=== PATIENT | male | born 1975 | race Native Hawaiian/Other Pacific Islander ===

== ENCOUNTER 2016-11-13 14:46 | Inpatient (IN) | payer OTHER ==
[~2016-11-13] VITALS: Ht 188 cm; Wt 48.9 kg
--- NOTE | ~2016-11-13 | EKG ---
[address] [place] [address] ELECTROCARDIOGRAM REPORT Name: MELVIN SHEPPARD Room #: 434-P ADM IN M.R.#: [id number] Admission: 11/13/16 Attend Phys: Kindra Hoffman MD Discharge: Date of : 77 Report #: [id number] THIS REPORT FOR: //name// [facility] ED Test Date: 2016-11-13 Test Time: 19:48:30 Pat Name: MELVIN SHEPPARD Department: Room: 434 Gender: M Feed Weigher: SHABBIR : 1975 Requested By: Audra Szymanski Order Number: [id number] MD: Alan Sierra Measurements Intervals [place] Rate: 115 P: 67 CA: 158 QRS: 61 QRSD: 83 T: -30 QT: 253 QTc: 350 Interpretive Statements Sinus tachycardia Nonspecific ST and T wave abnormality No previous ECG available for comparison Electronically Signed On 11-14-2016 18:11:04 CDT by Alan Sierra [email or web address] <ELECTRONICALLY SIGNED> By: Alan Sierra MD, [facility] 11/14/16 1811 47 47 Alan Sierra MD, FACC /EPI
--- NOTE | ~2016-11-13 | S ---
[facility] [place] [address] SURGICAL PATH RPT PROCEDURE Name: MELVIN SHEPPARD Room #: 434-P ADM IN M.R.#: [id number] Admission: 11/13/16 Date of : 77 Discharge: Report #: [id number] Path Case #: [id number] PATHOLOGY REPORT COLLECTION DATE: 11/14/2016 RECEIVED DATE: 11/14/2016 SUBMITTING PHYS: Dr. Olu Todd OTHER PHYS: Dr. Brandon Hoffman ADDENDUM REPORT (Order Date: 11/17/2016 11:30) ADDENDUM COMMENT: This addendum is issued to document the special stain and the immunohistochemical stains performed. PAS-D fungal (C1): no definite fungal elements identified *CMV (C1): no definite viral inclusions identified *HSV-1 (C1): no viral inclusions identified The originally rendered diagnosis remains unchanged. (IUV:mgr; 11/17/2016) *This test was developed and its performance characteristics determined by [facility]. It has not been cleared or approved by the U.S. Food and Drug Administration. The FDA has determined that such clearance or approval is not necessary. This test is used for clinical purposes. It should not be regarded as investigational or for research. This laboratory is certified under the Clinical Laboratory Improvement Amendments of 1988 (CLIA) as qualified to perform high complexity clinical laboratory testing. Professional services performed by [facility] at [facility] [address], [place] [address] Technical services performed by [facility] at [address] [place] [address], [address] [place] [address]. ELECTRONICALLY SIGNED BY: Eileen Dykes M.D. DATE/TIME:11/17/2016 15:22 SPECIMEN(S) RECEIVED: A.Duodenal biopsy B.Gastric biopsy C.Esophagitis * * * * * * * * * * * * FINAL DIAGNOSIS: A. Small bowel mucosa, duodenum, endoscopic biopsy: [facility] [address] [place] [address] SURGICAL PATH RPT PROCEDURE Name: AKI SHEPPARDO Room #: 434-P [facility] IN M.R.#: [id number] Admission: 11/13/16 Date of : 77 Discharge: Report #: [id number] Path Case #: [id number] - No diagnostic abnormalities present. B. Gastric mucosa, gastritis, endoscopic biopsy: - Moderate reactive gastropathy with focal chronic active gastritis. - Negative for intestinal metaplasia or atrophy. - Negative for Helicobacter pylori. C. Squamous mucosa, esophagitis, endoscopic biopsy: - Fragments comprised of fibrinopurulent material consistent with ulceration. - Negative for viral inclusions on routine stains. - Squamous mucosa showing mild active esophagitis along with changes compatible with reflux. - Negative for intestinal metaplasia or dysplasia. COMMENT: Helicobacter pylori immunohistochemical stain performed on block B1-negative. A PAS-D fungal special stain, *CMV, and *HSV-1 are ordered on block C1. The results of this will be reported in an addendum to follow. (IUV:mgr; 11/16/2016) *This test was developed and its performance characteristics determined by [facility]. It has not been cleared or approved by the U.S. Food and Drug Administration. The FDA has determined that such clearance or approval is not necessary. This test is used for clinical purposes. It should not be regarded as investigational or for research. This laboratory is certified under the Clinical Laboratory Improvement Amendments of 1988 (CLIA) as qualified to perform high complexity clinical laboratory testing. PATHOLOGIST: Eileen Dykes M.D. REPORT ELECTRONICALLY SIGNED BY: Eileen Dykes M.D. DATE/TIME: 11/16/2016 16:28 * * * * * * * * * * * * GROSS PATHOLOGY: A. Received in formalin labeled "Sheppard Melvin, duodenal BX," are 6 segments of alvarado soft tissue measuring 1.8 x 0.2 x 0.2 cm in aggregate dimensions and ranging from 0.2 to 0.4 cm in maximum dimension. The specimen is submitted entirely in cassette A1. B. Received in formalin labeled "SheppardDarrenMelvin, gastritis BX," are 4 segments of alvarado soft tissue measuring 1.3 x 0.2 x 0.2 cm in aggregate dimensions and ranging from 0.2 to 0.5 cm in maximum dimension. The specimen is submitted entirely in cassette B1. C. Received in formalin labeled "Aki Sheppardo, esophagitis BX," are 4 segments of alvarado to white soft tissue measuring 1.1 x 0.2 x 0.1 cm in aggregate dimensions and ranging from 0.1 to 0.5 cm in maximum dimension. The specimen is submitted entirely in cassette C1, smaller segments may not survive processing. [address] [address] SURGICAL PATH RPT PROCEDURE Name: MELVIN SHEPPARD Room #: 434-P ADM IN M.R.#: [id number] Admission: 11/13/16 Date of : 77 Discharge: Report #: [id number] Path Case #: [id number] (GUILLERMO; 11/15/2016) CLINICAL HISTORY: Abdominal pain INITIAL CPT CODE(S): A; 90249 B; 93925, 53415 C; 63188, 15183, 18622, 49847 Professional services performed by [facility] at [place] [address], [place] [address] Technical services performed by [facility] at [address] [place] [address], [facility] [address] [address]. [facility] [address] [place] [address] PHONE: [phone] DIRECTOR: Ruiz Dey M.D. * * * END OF REPORT * * *
--- NOTE | ~2016-11-13 | S ---
[facility] [place] [address] [address] SURGICAL PATH RPT PROCEDURE Name: MELVIN SHEPPARD Room #: 434-P ADM IN M.R.#: [id number] Admission: 11/13/16 Date of : 77 Discharge: Report #: [id number] Path Case #: [id number] PATHOLOGY REPORT COLLECTION DATE: 11/18/2016 RECEIVED DATE: 11/20/2016 SUBMITTING PHYS: Dr. Chad Foster OTHER PHYS: Dr. Kindra Hoffman SPECIMEN(S) RECEIVED: A.Gallbladder * * * * * * * * * * * * FINAL DIAGNOSIS: Gallbladder, cholecystectomy: - Mild chronic cholecystitis. PATHOLOGIST: Eileen Dykes M.D. REPORT ELECTRONICALLY SIGNED BY: Eileen Dykes M.D. DATE/TIME: 11/21/2016 15:41 * * * * * * * * * * * * GROSS PATHOLOGY: Received in formalin labeled "Melvin Sheppard gallbladder," is a 7.4 x 2.5 x 1.0 cm, previously opened gallbladder with bile-stained serosal surfaces. Opening the gallbladder reveals a velvety, bile-stained mucosa and an average wall thickness of 0.1 cm. Calculi are not present and no masses are noted grossly. Triage Specialist sections from the body and fundus are submitted along with the proximal margin in cassette A1. (CAA; 11/20/2016) CLINICAL HISTORY: Biliary dyskinesia INITIAL CPT CODE(S): A; 44474 Professional services performed by [facility] at [facility] [address], [place] [address] Technical services performed by [facility] at [address] [place] [address]. [facility] [address] [place] [address] SURGICAL PATH RPT PROCEDURE Name: MELVIN SHEPPARD Room #: 434-P ADM IN M.R.#: [id number] Admission: 11/13/16 Date of : 77 Discharge: Report #: [id number] Path Case #: [id number] [facility] [id number] [address] PHONE: [phone] DIRECTOR: Ruiz Dey M.D. * * * END OF REPORT * * *
[2016-11-13 14:48] VITALS: BP 148/100
[2016-11-13 15:51] VITALS: BP 126/86
[2016-11-13 16:14] LABS: HEMOGLOBIN 14.2 gm/dL (14.0-18.0); MCHC 34.6 g/dL (28.0-37.0); MCV 92.3 fL (80.0-100.0); PLATELET COUNT 410 thou/uL (150-400); RBC 4.44 mil/uL (4.50-6.00); RDW 12.7 % (10.5-14.5); WBC 10.6 thou/uL (4.0-11.0)
[2016-11-13 16:16] LABS: MANUAL DIFF YES
[2016-11-13 16:22] LABS: CALCIUM 9.5 mg/dL (8.5-10.1); CREATININE 0.8 mg/dL (0.7-1.3); POTASSIUM 3.4 mmol/L (3.5-5.1)
[2016-11-13 16:27] LABS: ALBUMIN 4.2 g/dL (3.4-5.0); TOTAL BILIRUBIN 0.5 mg/dL (<0.1-1.0); TOTAL PROTEIN 8.6 g/dL (6.4-8.2)
[2016-11-13 16:36] LABS: TOTAL CELL COUNT 100
[2016-11-13 17:58] LABS: URINE BILIRUBIN NEGATIVE (Negative); URINE BLOOD NEGATIVE (Negative); URINE COLOR YELLOW; URINE GLUCOSE-RANDOM* 1+ (Negative); URINE KETONES 1+ (Negative); URINE LEUKOCYTES-REFLEX NEGATIVE (Negative); URINE PROTEIN (DIPSTICK) NEGATIVE (Negative)
[2016-11-13] MEDS ORDERED: PEPCID20 MG PO (19:23)
[2016-11-13] MEDS ORDERED: PHENERGAN 25 MG25 M1 PO (19:23)
[2016-11-13] MEDS ORDERED: PROTONIX 20 MG20 M1 PO (19:23)
[2016-11-13 21:17] VITALS: BP 105/68; BP 107/71
[2016-11-13 21:56] VITALS: BP 115/78
[2016-11-14 07:25] LABS: HEMATOCRIT 36.4 % (42.0-52.0); HEMOGLOBIN 12.4 gm/dL (14.0-18.0); MCH 31.7 pg (26.0-34.0); MCHC 34.1 g/dL (28.0-37.0); MCV 93.1 fL (80.0-100.0); RBC 3.91 mil/uL (4.50-6.00)
[2016-11-14 07:57] LABS: CALCIUM 8.7 mg/dL (8.5-10.1); CREATININE 0.8 mg/dL (0.7-1.3); POTASSIUM 3.5 mmol/L (3.5-5.1)
[2016-11-14 08:27] VITALS: BP 156/92
[2016-11-14 15:40] VITALS: BP 134/89
[2016-11-14 20:25] VITALS: BP 168/102
[2016-11-14 21:30] VITALS: BP 144/86
[2016-11-15 05:06] VITALS: BP 154/97
[2016-11-15 06:12] LABS: GLYCOHEMOGLOBIN (HGB A1C) 7.5 % (4.8-5.6)
[2016-11-15 08:00] VITALS: BP 165/93
[2016-11-15 09:10] VITALS: BP 165/93
[2016-11-15 16:24] VITALS: BP 165/93
[2016-11-15 17:18] VITALS: BP 130/85
[2016-11-15 20:43] VITALS: BP 142/87
[2016-11-16 05:24] VITALS: BP 114/72
[2016-11-16 08:00] VITALS: BP 134/80
[2016-11-16 16:00] VITALS: BP 157/94
[2016-11-16 20:10] VITALS: BP 146/89
[2016-11-17 05:10] VITALS: BP 139/85
[2016-11-17 06:21] LABS: BASOPHILS 0.6 % (0.0-2.0); EOSINOPHILS 0.5 % (0.0-3.0); HEMATOCRIT 38.5 % (42.0-52.0); HEMOGLOBIN 13.4 gm/dL (14.0-18.0); MCH 31.6 pg (26.0-34.0); MCHC 34.8 g/dL (28.0-37.0); MCV 90.8 fL (80.0-100.0); MONOCYTES 10.2 % (1.0-8.0); PLATELET COUNT 384 thou/uL (150-400); POLYS 60.7 % (36.0-66.0); RBC 4.24 mil/uL (4.50-6.00); RDW 12.8 % (10.5-14.5); WBC 4.9 thou/uL (4.0-11.0)
[2016-11-17 06:33] LABS: MANUAL DIFF NO
[2016-11-17 06:34] LABS: ALBUMIN 3.9 g/dL (3.4-5.0); CALCIUM 9.2 mg/dL (8.5-10.1); CREATININE 0.7 mg/dL (0.7-1.3); MAGNESIUM 1.9 mg/dL (1.8-2.4); POTASSIUM 3.7 mmol/L (3.5-5.1); TOTAL BILIRUBIN 0.4 mg/dL (<0.1-1.0); TOTAL PROTEIN 7.5 g/dL (6.4-8.2)
[2016-11-17 07:47] VITALS: BP 148/88
[2016-11-17 08:00] VITALS: BP 148/88
[2016-11-17 16:41] VITALS: BP 132/85
[2016-11-17 19:05] VITALS: BP 127/91
[2016-11-18 03:40] VITALS: BP 134/74
[2016-11-18 08:00] VITALS: BP 153/80
[2016-11-18 13:15] VITALS: BP 154/64
[2016-11-18 17:14] LABS: HEPATITIS C VIRUS AB <0.1 (0.0-0.9)
[2016-11-18 17:55] VITALS: BP 125/69
[2016-11-18 19:20] VITALS: BP 159/92
[2016-11-19 00:10] VITALS: BP 144/89
[2016-11-19 04:28] LABS: HEMATOCRIT 35.2 % (42.0-52.0); HEMOGLOBIN 12.2 gm/dL (14.0-18.0); MCH 31.5 pg (26.0-34.0); MCHC 34.6 g/dL (28.0-37.0); PLATELET COUNT 367 thou/uL (150-400); RBC 3.87 mil/uL (4.50-6.00); RDW 12.9 % (10.5-14.5); WBC 15.9 thou/uL (4.0-11.0)
[2016-11-19 04:29] LABS: MANUAL DIFF YES
[2016-11-19 04:33] LABS: ALBUMIN 3.5 g/dL (3.4-5.0); CALCIUM 8.6 mg/dL (8.5-10.1); CREATININE 0.8 mg/dL (0.7-1.3); MAGNESIUM 1.6 mg/dL (1.8-2.4); PHOSPHORUS 3.9 mg/dL (2.5-4.9); POTASSIUM 3.8 mmol/L (3.5-5.1); TOTAL BILIRUBIN 0.4 mg/dL (<0.1-1.0); TOTAL PROTEIN 7.1 g/dL (6.4-8.2)
[2016-11-19 04:45] VITALS: BP 142/88
[2016-11-19 06:42] LABS: ABSOLUTE NEUTROPHILS 13.5 thou/uL (1.4-8.2); TOTAL CELL COUNT 100
[2016-11-19 07:25] VITALS: BP 171/88
[2016-11-19 15:42] VITALS: BP 113/76
[2016-11-19 20:22] VITALS: BP 143/87
[2016-11-20 05:06] LABS: ABSOLUTE NEUTROPHILS 5.2 thou/uL (1.4-8.2); BASOPHILS 0.3 % (0.0-2.0); EOSINOPHILS 0.3 % (0.0-3.0); HEMATOCRIT 33.4 % (42.0-52.0); HEMOGLOBIN 11.6 gm/dL (14.0-18.0); LYMPHOCYTES 25.6 % (24.0-44.0); MCH 31.7 pg (26.0-34.0); MCHC 34.6 g/dL (28.0-37.0); MCV 91.6 fL (80.0-100.0); MONOCYTES 8.7 % (1.0-8.0); PLATELET COUNT 327 thou/uL (150-400); POLYS 65.1 % (36.0-66.0); RBC 3.64 mil/uL (4.50-6.00); WBC 7.9 thou/uL (4.0-11.0)
[2016-11-20 05:09] LABS: MANUAL DIFF NO
[2016-11-20 05:16] LABS: CALCIUM 8.5 mg/dL (8.5-10.1); CREATININE 0.6 mg/dL (0.7-1.3); POTASSIUM 3.2 mmol/L (3.5-5.1)
[2016-11-20 05:32] VITALS: BP 137/83
[2016-11-20 08:00] VITALS: BP 121/78
[2016-11-20 16:00] VITALS: BP 128/81
[2016-11-20 19:35] VITALS: BP 139/86
[2016-11-20 20:04] LABS: URINE BILIRUBIN NEGATIVE (Negative); URINE BLOOD NEGATIVE (Negative); URINE COLOR YELLOW; URINE GLUCOSE-RANDOM* NEGATIVE (Negative); URINE KETONES 2+ (Negative); URINE LEUKOCYTES-REFLEX NEGATIVE (Negative); URINE PROTEIN (DIPSTICK) NEGATIVE (Negative); URINE UROBILINOGEN 0.2 E.U./dl (0.2-1.0)
[2016-11-21 03:39] VITALS: BP 139/91
[2016-11-21 08:00] VITALS: BP 145/90
[2016-11-21 10:11] LABS: ALBUMIN 3.5 g/dL (3.4-5.0); CALCIUM 8.8 mg/dL (8.5-10.1); CREATININE 0.6 mg/dL (0.7-1.3); POTASSIUM 3.9 mmol/L (3.5-5.1); TOTAL BILIRUBIN 0.4 mg/dL (<0.1-1.0); TOTAL PROTEIN 6.8 g/dL (6.4-8.2)
[2016-11-21] MEDS ORDERED: FLOMAX0.4 MG PO (14:26)
[2016-11-21] MEDS ORDERED: CARAFATE 11 GM/10 M1 PO (14:26)
[2016-11-21] MEDS ORDERED: COLACE 100 MG100 MG PO (14:26)
[2016-11-21] MEDS ORDERED: COZAAR 50 MG TA50 M2 PO (14:26)
[2016-11-21] MEDS ORDERED: PROTONIX40 M1 PO (14:26)
[2016-11-21] MEDS ORDERED: METFORMIN HCL500 MG PO (14:26)
[2016-11-21] MEDS ORDERED: MIRALAX17 GM PO (14:26)
[2016-11-21 15:36] VITALS: BP 165/93
[2016-11-21 16:00] VITALS: BP 154/94
[2016-11-21 18:31] VITALS: BP 165/93
== END 2016-11-21 18:30 | disposition home or self-care (01) | DRG 354 ==
LOC: ER 14:46 → 4S 21:05 → EROBS 21:05 → 4S 21:20
PROVIDERS: Internal Medicine Endocrinology, Diabetes & Metabolism; Nurse Practitioner; Nurse Practitioner Adult Health; Nurse Practitioner Family; Otolaryngology; Physician Assistant
PROC: 0DB68ZX Excision of Stomach, Via Natural or Artificial Opening Endoscopic, Diagnostic (ICD-10-PCS; 2016-11-14)
PROC: 0WQF4ZZ Repair Abdominal Wall, Percutaneous Endoscopic Approach (ICD-10-PCS; principal; 2016-11-18)
PROC: 0FT44ZZ Resection of Gallbladder, Percutaneous Endoscopic Approach (ICD-10-PCS; principal; 2016-11-18)
DX: K29.70 Gastritis, unspecified, without bleeding (principal); K22.10 Ulcer of esophagus without bleeding; K92.0 Hematemesis; N20.9 Urinary calculus, unspecified; K82.8 Other specified diseases of gallbladder; K59.00 Constipation, unspecified; E87.6 Hypokalemia; E83.42 Hypomagnesemia; K42.9 Umbilical hernia without obstruction or gangrene; K21.9 Gastro-esophageal reflux disease without esophagitis; I10 Essential (primary) hypertension; E11.9 Type 2 diabetes mellitus without complications; F15.90 Other stimulant use, unspecified, uncomplicated; Z79.899 Other long term (current) drug therapy; Z83.3 Family history of diabetes mellitus; Z79.4 Long term (current) use of insulin
CPT/HCPCS: 10100; 50010; 50101; 50249; 50411; 50555; 50886; 50962; 51975; 54022; 54118; 55245; 55317; 56462; 56525; 56526; 62110; 62900; 70005